=== PATIENT | female | born 1960 | race Caucasian/White ===

== ENCOUNTER 2023-08-16 20:03 | Emergency (ER) | payer MEDICARE, OTHER ==
--- NOTE | 2023-08-16 20:25 | ED ---
General Adult HPI - General Source: RN notes reviewed <Rickey Harrison - Last Filed: 08/16/23 20:26> - General Source: patient, RN notes reviewed, old records reviewed <Moo Mckee - Last Filed: 08/17/23 05:32> - General Stated complaint: Abd Pain Time Seen by Provider: 08/16/23 20:20 - History of Present Illness Initial comments: Quick note Patient 3-year-old female presenting to the ED with chief complaint nausea vom iting. Patient reports had suspicious food intake few days ago. States yesterday onset of nausea vomiting nonbloody diarrhea. Also of some left-sided abdominal pain with associated subjective fever. Was seen at urgent care and prescribed Zofran with Pepto-Bismol but this prompted presentation to the ED for evaluation. (Rickey Harrison) Patient is a 63-year-old female who was originally seen as a quick note. Presents with left lower quadrant abdominal pain. Was sent from urgent care for evaluation for diverticulitis. Has a history of hypertension. Has a history of tubal ligation in terms of abdominal surgeries. States the pain is located in the left side and left lower abdomen. Has been ongoing since yesterday. Has been having nonbloody diarrhea as well as nausea and vomiting with the pain. Presents for further evaluation at this time. Denies chest pain or shortness of breath. Denies fevers. Has no urinary complaints. I evaluated patient when she was placed in room after workup was started. (Moo Mckee) - Related Data Previous Rx's Medication Instructions Recorded Amoxic-Pot Clav 875-125Mg 1 tab PO Q12HR 10 Days #20 tab 08/16/23 [Augmentin 875-125] Allergies Allergy/AdvReac Type Severity Reaction Status Date / Time naproxen [From Aleve] AdvReac Rash/Hives Verified 08/16/23 20:27 Review of Systems ROS Other: All systems not noted in ROS Statement are negative. <Rickey Harrison - Last Filed: 08/16/23 20:26> ROS Other: All systems not noted in ROS Statement are negative. <Moo Mckee - Last Filed: 08/17/23 05:32> ROS Statement: Those systems with pertinent positive or pertinent negative responses have been documented in the HPI. Review of Systems: CONST: Denies fever EYES: Denies blurry vision ENT: Denies nasal congestion C/V: Denies Chest pain RESP: Denies shortness of breath GI: Endorses abdominal pain : Denies dysuria SKIN: Denies rash. MSK: Denies joint pain. NEURO: Denies headache (Moo Mckee) General Exam <Rickey Harrison - Last Filed: 08/16/23 20:26> <Moo Mckee - Last Filed: 08/17/23 05:32> - General Exam Comments Initial Comments: Visual Physical Exam Vital signs reviewed General: Well-appearing, nontoxic, no acute distress. Head: Normocephalic, atraumatic Eyes: PERRLA, EOMI ENT: Airway patent Chest: Nonlabored breathing Skin: No visual rash, normal skin tone Neuro: Alert and oriented 3 Musculoskeletal: No gross abnormalities (Rickey Harrison) General: Appears in mild distress secondary to abdominal pain. HEAD: Normal with no signs of head trauma. EYES: PERRLA, EOMI, conjunctiva normal, no discharge. ENT: Hearing grossly intact, normal oropharynx. RESPIRATORY: Clear breath sounds bilaterally. No wheezes, rales, or rhonchi. C/V: Regular rate and rhythm. S1 and S2 auscultated, no edema, peripheral pulses 2+ and intact throughout ABD: Abdomen is soft, nondistended. Tender to palpation in left lower quadrant. No guarding. No rebound tenderness. No peritoneal signs. EXT: Normal range of motion, no obvious deformity SKIN: No rashes or lesions observed on exposed skin. NEURO: Alert and oriented x 4. (Moo Mckee) Course Vital Signs 08/16/23 08/16/23 20:23 23:40 Temperature 97.5 F L Pulse Rate 67 66 Respiratory 20 18 Rate Blood Pressure 125/38 126/61 O2 Sat by Pulse 98 97 Oximetry Medical Decision Making <Rickey Harrison - Last Filed: 08/16/23 20:26> - Lab Data Result diagrams: 08/16/23 20:35 08/16/23 21:23 <Moo Mckee - Last Filed: 08/17/23 05:32> - Medical Decision Making Quicknote portion performed. Signed Rickey Harrison PA-C (Rickey Harrison) Was pt. sent in by a medical professional or institution ([facility], FINANCIAL INTERN, urgent care, hospital, or senior care...) When possible be specific @ -Sent from urgent care for evaluation of abdominal pain. Did you speak to anyone other than the patient for history (EMS, parent, family, police, friend...)? What history was obtained from this source @ -No Did you review nursing and triage notes (agree or disagree)? Why? @ -I reviewed and agree with nursing and triage notes Were old charts reviewed (outside hosp., previous admission, EMS record, old EKG, old radiological studies, urgent care reports/EKG's, senior care records)? Report findings @ -No old charts were reviewed Differential Diagnosis (chest pain, altered mental status, abdominal pain women, abdominal pain men, vaginal bleeding, weakness, fever, dyspnea, syncope, headache, dizziness, GI bleed, back pain, seizure, CVA, palpatations, mental health, musculoskeletal)? @ -Differential Abdominal Pain Women: Appendicitis, Cholecystitis, diverticulosis, ischemic bowel, pancreatitis, hepatitis, UTI, gastroenteritis, AAA, incarcerated hernia, bowel obstruction, constipation, inflammatory bowel, hepatitis, peptic ulcer disease, splenic infarction, perforated viscus, vulvitis, ovarian torsion, PID, kidney stone, placenta abruption, this is not meant to be an all-inclusive list EKG interpreted by me (3pts min.). @ -None done X-rays interpreted by me (1pt min.). @ -None done CT interpreted by me (1pt min.). @ -Imaging of the abdomen pelvis reveals uncomplicated diverticulitis. U/S interpreted by me (1pt. min.). @ -None done What testing was considered but not performed or refused? (CT, X-rays, U/S, labs)? Why? @ -None What meds were considered but not given or refused? Why? @ -None Did you discuss the management of the patient with other professionals (professionals i.e. [facility], FINANCIAL INTERN, lab, RT, psych nurse, social services director, cytology supervisor, teacher, youth liaison officer, rehabilitation case coordinator)? Give summary @ -No Was smoking cessation discussed for >3mins.? @ -No Was critical care preformed (if so, how long)? @ -No Were there social determinants of health that impacted care today? How? (Homelessness, low income, unemployed, alcoholism, drug addiction, transportation, low edu. Level, literacy, decrease access to med. care, group home, rehab)? @ -No Was there de-escalation of care discussed even if they declined (Discuss DNR or withdrawal of care, Hospice)? DNR status @ -No What co-morbidities impacted this encounter? (DM, HTN, Smoking, COPD, CAD, Cancer, CVA, ARF, Chemo, Hep., AIDS, mental health diagnosis, sleep apnea, morbi d obesity)? @ -None Was patient admitted / discharged? Hospital course, mention meds given and rout e, prescriptions, significant lab abnormalities, going to OR and other pertinent info. @ -Patient presents for abdominal pain from urgent care. Workup started as a quick note. Vital signs within acceptable limits. CT imaging has already returned remarkable for noncomplicated diverticulitis. Patient has a mild leukocytosis of 15. Remainder the labs are still pending. I evaluated patient when she was placed in room. Vital signs are within acceptable limits. She will be symptomatically treated with IV fluids, Protonix, Zofran, morphine. We will wait for remainder of the patient's labs. She was in agreement this plan. Patient's labs returned otherwise remarkable only for mild hypokalemia which will be replenished. On reevaluation, patient is feeling improved. I believe it is safer to be discharged home. She will be discharged home on Augmentin and will be given a dose prior to discharge. Also given analgesia medications for home as well as ODT Zofran. She was in agreement this plan. Strict return precautions discussed. I will provide the patient with a prescription for Augmentin. I instructed the patient to follow up with their PCP in the next 1-3 days.I explained that the patient should return to the emergency department if they experience any worsening symptoms. Strict return precautions were discussed with the patient. The patient expressed understanding of these instructions. I answered all questions that the patient had. The patient was discharged home in good condition with their prescriptions and follow up information. Undiagnosed new problem with uncertain prognosis? @ -No Drug Therapy requiring intensive monitoring for toxicity (Heparin, Nitro, In sulin, Cardizem)? @ -No Were any procedures done? @ -No Diagnosis/symptom? @ -Diverticulitis Acute, or Chronic, or Acute on Chronic? @ -Acute Uncomplicated (without systemic symptoms) or Complicated (systemic symptoms)? @ -Uncomplicated Side effects of treatment? @ -No Exacerbation, Progression, or Severe Exacerbation? @ -No Poses a threat to life or bodily function? How? (Chest pain, [place], [place], pneumonia, PE, COPD, DKA, ARF, appy, cholecystitis, CVA, Diverticulitis, Homicidal, Suicidal, threat to staff... and all critical care pts) @ -Unlikely (Moo Mckee) - Lab Data Lab Results 08/16/23 08/16/23 Range/Units 20:35 21:23 WBC 15.7 H (3.8-10.6) k/uL RBC 4.98 (3.80-5.40) m/uL Hgb 14.4 (11.4-16.0) gm/dL Hct 43.5 (34.0-46.0) % MCV 87.3 (80.0-100.0) fL MCH 28.9 (25.0-35.0) pg MCHC 33.2 (31.0-37.0) g/dL RDW 13.6 (11.5-15.5) % Plt Count 395 (150-450) k/uL MPV 8.2 Neutrophils % 84 % Lymphocytes % 8 % Monocytes % 7 % Eosinophils % 0 % Basophils % 0 % Neutrophils # 13.2 H (1.3-7.7) k/uL Lymphocytes # 1.2 (1.0-4.8) k/uL Monocytes # 1.1 H (0-1.0) k/uL Eosinophils # 0.0 (0-0.7) k/uL Basophils # 0.0 (0-0.2) k/uL Sodium 136 L (137-145) mmol/L Potassium 3.0 L (3.5-5.1) mmol/L Chloride 103 (98-107) mmol/L Carbon Dioxide 20 L (22-30) mmol/L Anion Gap 13 mmol/L BUN 27 H (7-17) mg/dL Creatinine 1.04 (0.52-1.04) mg/dL Est GFR (CKD-EPI)AfAm 67 (>60 ml/min/1.73 sqM) Est GFR (CKD-EPI)NonAf 58 (>60 ml/min/1.73 sqM) Glucose 114 H (74-99) mg/dL Calcium 9.7 (8.4-10.2) mg/dL Total Bilirubin 1.0 (0.2-1.3) mg/dL AST 26 (14-36) U/L ALT 13 (4-34) U/L Alkaline Phosphatase 78 (38-126) U/L Total Protein 6.9 (6.3-8.2) g/dL Albumin 4.5 (3.5-5.0) g/dL Amylase 51 (30-110) U/L Lipase 86 (23-300) U/L Disposition <Rickey Harrison - Last Filed: 08/16/23 20:26> Is patient prescribed a controlled substance at d/c from ED?: No Time of Disposition: 23:17 <Moo Mckee - Last Filed: 08/17/23 05:32> Clinical Impression: Diverticulitis Disposition: HOME SELF-CARE Condition: Good Prescriptions: Amoxic-Pot Clav 875-125Mg [Augmentin 875-125] 1 tab PO Q12HR 10 Days #20 tab Referrals: Nonstaff,Physician [REFERRING] - 1-2 days Forms: Area PCPs
[2023-08-16 20:27] VITALS: TEMP 97.5
--- NOTE | 2023-08-16 21:30 | CT ---
EXAMINATION TYPE: CT abdomen pelvis w con CT DLP: 1324.7 mGycm, Automated exposure control for dose reduction was used. DATE OF EXAM: 08/16/2023 9:18 PM COMPARISON: None. CLINICAL INDICATION:Female, 63 years old with history of LLQ pain; llq pain TECHNIQUE: Axial CT abdomen pelvis w con;Sagittal and coronal reformats were created on a separate w orkstation. Contrast used:100 ml mL of Isovue 300 with IV Contrast, (none if empty) Oral contrast used: without Oral Contrast (none if empty) FINDINGS: LOWER CHEST: Unremarkable ABDOMEN LIVER: Unremarkable GALLBLADDER AND BILE DUCTS: Unremarkable. PANCREAS: Unremarkable. SPLEEN: Unremarkable. ADRENAL GLANDS: Unremarkable. KIDNEYS AND URETERS: No evidence nonobstructive left 2 mm calculi. Of hydronephrosis or renal calculu s. The ureters are unremarkable. PELVIS BLADDER: Unremarkable REPRODUCTIVE: Unremarkable. ABDOMEN & PELVIS STOMACH AND BOWEL: No evidence of bowel obstruction. Scattered colonic diverticula. There may be mild Fat stranding changes around the left lower quadrant diverticula series 201 image 58. The appendix i s normal. PERITONEUM/RETROPERITONEUM: No evidence of pneumoperitoneum or free fluid. VASCULATURE: No evidence of aortic aneurysm. MUSCULOSKELETAL: No acute osseous abnormalities mild degeneration changes of the hips with osteophyte formation and joint space narrowing. LYMPH NODES: No gross evidence for lymphadenopathy. SOFT TISSUE/ABDOMINAL WALL: Unremarkable IMPRESSION: There may be minimal fat stranding changes around the left lower quadrant diverticula correlate for m ild uncomplicated diverticulitis. No other acute left lower quadrant process to explain the patient's pain. No obstructive uropathy.
[2023-08-16 21:31] LABS: Basophils % (A) 0 %; Eosinophils % (A) 0 %; HCT 43.5 % (34.0-46.0); HGB 14.4 gm/dL (11.4-16.0); Lymphocytes # (A) 1.2 k/uL (1.0-4.8); Lymphocytes % (A) 8 %; MCH 28.9 pg (25.0-35.0); MCHC 33.2 g/dL (31.0-37.0); MCV 87.3 fL (80.0-100.0); Mean Platelet Volume 8.2; Monocytes # (A) 1.1 k/uL (0-1.0); Monocytes % (A) 7 %; Neutrophils # (A) 13.2 k/uL (1.3-7.7); Neutrophils % (A) 84 %; Platelet Count 395 k/uL (150-450); RBC 4.98 m/uL (3.80-5.40); RDW 13.6 % (11.5-15.5); WBC 15.7 k/uL (3.8-10.6)
[2023-08-16 22:31] LABS: ALT 13 U/L (4-34); AST 26 U/L (14-36); African American GFR (CKD) 67 (>60 ml/min/1.73 sqM); Albumin 4.5 g/dL (3.5-5.0); Alkaline Phosphatase 78 U/L (38-126); Amylase 51 U/L (30-110); Anion Gap 13 mmol/L; Blood Urea Nitrogen 27 mg/dL (7-17); Calcium 9.7 mg/dL (8.4-10.2); Carbon Dioxide 20 mmol/L (22-30); Chloride 103 mmol/L (98-107); Glucose 114 mg/dL (74-99); Lipase 86 U/L (23-300); Non-African American GFR(CKD) 58 (>60 ml/min/1.73 sqM); Sodium 136 mmol/L (137-145); Total Protein 6.9 g/dL (6.3-8.2)
[2023-08-16] MEDS: ONDANSETRON 4 MG/2 ML VIAL IVP STA (22:38)
[2023-08-16] MEDS: PANTOPRAZOLE 40 MG/10 ML VIAL IVP STA (22:41)
[2023-08-16] MEDS: MORPHINE SULFATE 4 MG/ML SYRINGE IVP STA (22:43)
[2023-08-16] MEDS: SODIUM CHLORIDE 0.9% 1,000 ML IV ONE (22:46)
[2023-08-16] MEDS: POTASSIUM CHLORIDE ER 20 MEQ TAB.ER PO STA (23:32)
[2023-08-16] MEDS: AMOXIC-POT CLAV 875-125MG 1 EACH TAB PO STA (23:32)
[2023-08-16] MEDS: ONDANSETRON 4 MG ODT STARTER PACK 2 TAB BTL PO STA (23:33)
[2023-08-16] MEDS: ACET/COD 300 MG/30 MG STARTER PACK 6 TAB BTL PO STA (23:33)
[2023-08-16 23:41] VITALS: BP 126/61; PULSE 66; RESP 18
== END 2023-08-16 23:41 | disposition home or self-care (01) ==
LOC: EC 20:03
DX: K57.92 Diverticulitis of intestine, part unspecified, without perforation or abscess without bleeding (principal); Z88.6 Allergy status to analgesic agent
CPT/HCPCS: 36415; 80053; 82150; 83690; 85025; 74177; 99284; 96374; 96375 ×2; 96361; J2270; J2405; S0119; C9113; Q9967